=== PATIENT | male | born 1955 | race Caucasian/White ===

== ENCOUNTER 2018-01-14 20:01 | Emergency (ER) | payer MEDICARE, OTHER ==
[2018-01-14 20:54] LABS: Eosinophils 4 % (0-10); Hemoglobin 8.1 g/dL (14.0-18.0); Lymphocytes 29 % (21-51); MDiff Complete? YES; Mean Corpuscular HGB CONC 32.4 g/dL (32.0-36.0); Mean Corpuscular Hemoglobin 30.9 pg (27.0-31.0); Mean Corpuscular Volume 95.4 fl (80.0-94.0); Mean Platelet Volume 9.7 fL (7.4-10.4); Monocytes 12 % (0-10); Neutrophil 54 % (42-75); PLT Morphology Comment Appears Decreased; Platelet Count 38 thou/uL (130-400); RBC Distribution Width 13.9 % (11.5-14.5); Red Blood Cell (RBC) Count 2.61 mill/uL (4.70-6.10); White Blood Cell (WBC) Count 2.9 thou/uL (4.8-10.8)
[2018-01-14 20:58] LABS: ALT (SGPT) 8 U/L (8-55); AST (SGOT) 15 U/L (5-34); Albumin 3.8 g/dL (3.4-4.8); Alkaline Phosphatase 68 U/L (40-150); Anion Gap 13 mmol/L (10-20); BUN (Urea Nitrogen) 44 mg/dL (8.4-25.7); Bilirubin, Total 0.5 mg/dL (0.2-1.2); CK (CPK) 46 U/L (30-200); Calc. Creatinine Clearance 0 mL/min (70-130); Calcium 8.9 mg/dL (7.8-10.44); Carbon Dioxide 18 mmol/L (23-31); Chloride 114 mmol/L (98-107); Estimated GFR-MDRD 39; Globulin 3.1 g/dL (2.4-3.5); Glucose 170 mg/dL (80-115); Potassium 3.9 mmol/L (3.5-5.1); Protein, Total 6.9 g/dL (5.8-8.1); Sodium 141 mmol/L (136-145)
[2018-01-14 21:14] LABS: Troponin I 1.377 ng/mL (< 0.028)
[2018-01-14] MEDS ORDERED: Azithromycin 250 MG TAB ONE (21:23)
--- NOTE | 2018-01-14 21:51 | RAD ---
PORTABLE AP CHEST X-RAY: 01/14/18 HISTORY: Shortness of breath. COMPARISON: Prior study on 06/14/14. FINDINGS: Right subclavian central venous catheter is no longer in place. Postsurgical change related to median sternotomy are noted. There is increased air space opacity seen at the right lung base worrisome for either aspiration pneumonitis or pneumonia. Left lung is clear. No other interval change. IMPRESSION: 1. Parenchymal air space opacity at the right lung base which may be related to either aspiratio n pneumonitis or pneumonia. Followup to resolution is recommended. 2. Cardiomegaly. POS: [facility]
--- NOTE | 2018-01-14 22:40 | PDOC.FPRHP ---
- History of Present Illness Chief Complaint: SOB History of Present Illness: 62 yo male presents with SOB. ED Course: Rocephin, Azithromycin, 500 ml NS bolus, Aspirin - Allergies/Adverse Reactions Allergies Allergy/AdvReac Type Severity Reaction Status Date / Time No Known Allergies Allergy Verified 02/20/14 13:00 - Home Medications Medication Instructions Recorded Confirmed Type Lisinopril [Prinivil] 10 mg PO DAILY 02/20/14 06/02/14 History Aspirin 325 mg PO DAILY #0 tab 02/27/14 06/03/14 Rx Clopidogrel Bisulfate [Plavix] 75 mg PO DAILY #0 tab 02/27/14 06/02/14 Rx Acarbose [Precose] 50 mg PO TID-WM 03/02/14 06/02/14 History Carvedilol [Coreg] 12.5 mg PO BID #0 tab 03/04/14 06/02/14 Rx Furosemide [Lasix] 40 mg PO 0900,1400 #0 tab 03/04/14 06/02/14 Rx HYDROcodone Bit/Acetaminophen 1 - 2 tab PO Q8HR PRN #0 tab 03/04/14 06/03/14 Rx [Vicodin] Nitroglycerin [Nitrostat] 0.4 mg PO Q5MIN PRN #0 tab 03/04/14 06/02/14 Rx Atorvastatin Calcium [Lipitor] 40 mg PO HS 06/02/14 06/02/14 History traMADol HCl [Tramadol HCl] 50 mg PO TID PRN 06/02/14 06/02/14 History HYDROcodone Bit/APAP 5/325 [Bryant] 1 tab PO Q4H PRN #0 tab 06/16/14 Rx Potassium Chloride [K-Dur] 20 meq PO QAM-WM #0 tab 06/16/14 Rx - History PMHx: DM2, HLD, HTN, Anemia, CHF, CKD, Cirrhosis of Liver PSHx: Unsuccessful stent placement in 2013 FHx: Non- Contributory Social: Former Tobacco and Alcohol user. No illicit drug use. - Review of Systems Respiratory: reports: shortness of breath - Vital signs BP: [134/69] HR: [75] RR: [32] Tmax: [97.4] Pox: [97]% on [1L] Wt: [89.4kg ] FMR H&P: Results - Labs Result Diagrams: 01/14/18 20:31 01/14/18 20:31 Lab results: WBC 2.9 thou/uL (4.8-10.8) L 01/14/18 20:31 Hgb 8.1 g/dL (14.0-18.0) L 01/14/18 20:31 Hct 24.9 % (42.0-52.0) L 01/14/18 20: MCV 95.4 fl (80.0-94.0) H 01/14/18 20:31 Plt Count 38 thou/uL (130-400) L 01/14/18 20:31 Sodium 141 mmol/L (136-145) 01/14/18 20: Potassium 3.9 mmol/L (3.5-5.1) 01/14/18 20: Chloride 114 mmol/L (98-107) H 01/14/18 20: Carbon Dioxide 18 mmol/L (23-31) L 01/14/18 20: BUN 44 mg/dL (8.4-25.7) H 01/14/18 20:31 Creatinine 1.78 mg/dL (0.6-1.3) H 01/14/18 20:31 Glucose 170 mg/dL (80-115) H 01/14/18 20:31 Calcium 8.9 mg/dL (7.8-10.44) 01/14/18 20: Total Bilirubin 0.5 mg/dL (0.2-1.2) 01/14/18 20: AST 15 U/L (5-34) 01/14/18 20: ALT 8 U/L (8-55) 01/14/18 20:31 Alkaline Phosphatase 68 U/L (40-150) 01/14/18 20:31 Creatine Kinase 46 U/L (30-200) 01/14/18 20:31 CK-MB (CK-2) 3.0 ng/mL (0-6.6) 01/14/18 20: Serum Total Protein 6.9 g/dL (5.8-8.1) 01/14/18 20: Albumin 3.8 g/dL (3.4-4.8) 01/14/18 20: FMR H&P: Upper Level - Plan Date/Time: 01/14/18 2238 I, [], have evaluated this patient and agree with findings/plan as outlined by automotive internet sales manager resident. Pertinent changes/additions are listed here.
== END 2018-01-14 23:12 | disposition left against medical advice (07) ==
LOC: ERS 20:01
DX: I21.4 Non-ST elevation (NSTEMI) myocardial infarction (principal); N17.9 Acute kidney failure, unspecified; D64.9 Anemia, unspecified; R09.02 Hypoxemia; I11.0 Hypertensive heart disease with heart failure; I50.9 Heart failure, unspecified; I25.2 Old myocardial infarction; K74.60 Unspecified cirrhosis of liver; E11.9 Type 2 diabetes mellitus without complications; E78.5 Hyperlipidemia, unspecified; F41.9 Anxiety disorder, unspecified; F31.9 Bipolar disorder, unspecified; F43.10 Post-traumatic stress disorder, unspecified; Z87.891 Personal history of nicotine dependence
CPT/HCPCS: 71045; 80053; 82553; 84484; 85025; 93005; 94760; J0696

== ENCOUNTER 2018-02-15 20:08 | Emergency (ER) | payer MEDICARE, OTHER ==
[2018-02-15 20:58] LABS: Hemoglobin 8.9 g/dL (14.0-18.0); Mean Corpuscular HGB CONC 32.6 g/dL (32.0-36.0); Mean Corpuscular Hemoglobin 30.6 pg (27.0-31.0); Mean Corpuscular Volume 94.2 fl (80.0-94.0); Red Blood Cell (RBC) Count 2.91 mill/uL (4.70-6.10); White Blood Cell (WBC) Count 2.7 thou/uL (4.8-10.8)
[2018-02-15 21:17] LABS: Band 1 % (5-11); Eosinophils 2 % (0-10); Lymphocytes 31 % (21-51); MDiff Complete? YES; Mean Platelet Volume 9.4 fL (7.4-10.4); Monocytes 11 % (0-10); Neutrophil 55 % (42-75); PLT Morphology Comment Appears Decreased; Platelet Count 53 thou/uL (130-400); RBC Distribution Width 12.9 % (11.5-14.5)
[2018-02-15 21:19] LABS: ALT (SGPT) 8 U/L (8-55); AST (SGOT) 20 U/L (5-34); Albumin 3.8 g/dL (3.4-4.8); Alkaline Phosphatase 72 U/L (40-150); Anion Gap 15 mmol/L (10-20); BUN (Urea Nitrogen) 32 mg/dL (8.4-25.7); Bilirubin, Total 0.6 mg/dL (0.2-1.2); CK (CPK) 31 U/L (30-200); Calc. Creatinine Clearance 0 mL/min (70-130); Calcium 8.7 mg/dL (7.8-10.44); Carbon Dioxide 20 mmol/L (23-31); Chloride 108 mmol/L (98-107); Estimated GFR-MDRD 45; Globulin 3.6 g/dL (2.4-3.5); Glucose 135 mg/dL (80-115); Potassium 3.5 mmol/L (3.5-5.1); Protein, Total 7.4 g/dL (5.8-8.1); Sodium 139 mmol/L (136-145)
[2018-02-15 21:22] LABS: CKMB 1.3 ng/mL (0-6.6); Troponin I 0.054 ng/mL (< 0.028)
--- NOTE | 2018-02-15 22:19 | ULT ---
RIGHT UPPER EXTREMITY VENOUS DOPPLER: 02/15/2018 PROVIDED CLINICAL HISTORY: Right arm swelling. FINDINGS: Fraser-scale and color Doppler sonography with spectral analysis was performed of the right internal ju gular, subclavian, axillary, brachial, basilic, cephalic, radial, and ulnar veins, demonstrating a no rmal sonographic appearance to each. IMPRESSION: No sonographic evidence for right upper extremity venous thrombosis. POS: [facility]
[2018-02-15] MEDS ORDERED: Sulfameth/Trimethoprim DS 800-160mg TAB ONE (23:03)
== END 2018-02-15 23:09 | disposition home or self-care (01) ==
LOC: ERS 20:08
DX: L03.113 Cellulitis of right upper limb (principal); E11.9 Type 2 diabetes mellitus without complications; E78.5 Hyperlipidemia, unspecified; I11.0 Hypertensive heart disease with heart failure; I50.9 Heart failure, unspecified; I25.2 Old myocardial infarction; F41.9 Anxiety disorder, unspecified; F31.9 Bipolar disorder, unspecified; Z87.891 Personal history of nicotine dependence; Z79.899 Other long term (current) drug therapy
CPT/HCPCS: 36415; 80053; 82550; 82553; 84484; 85025; 93005

== ENCOUNTER 2018-04-01 07:55 | Emergency (ER) | payer MEDICARE, OTHER ==
[2018-04-01] MEDS ORDERED: Furosemide 40 MG/4 ML VIAL ONE (08:29)
[2018-04-01 08:46] LABS: Hemoglobin 7.9 g/dL (14.0-18.0); Mean Corpuscular HGB CONC 32.9 g/dL (32.0-36.0); Mean Corpuscular Hemoglobin 31.6 pg (27.0-31.0); Mean Corpuscular Volume 96.1 fL (78.0-98.0); RBC Distribution Width 15.1 % (11.5-14.5); Red Blood Cell (RBC) Count 2.51 mill/uL (4.70-6.10); White Blood Cell (WBC) Count 2.6 thou/uL (4.8-10.8)
[2018-04-01 09:03] LABS: ALT (SGPT) 12 U/L (8-55); AST (SGOT) 19 U/L (5-34); Albumin 3.6 g/dL (3.4-4.8); Alkaline Phosphatase 76 U/L (40-150); Anion Gap 13 mmol/L (10-20); BUN (Urea Nitrogen) 39 mg/dL (8.4-25.7); Bilirubin, Total 0.5 mg/dL (0.2-1.2); Calc. Creatinine Clearance 0 mL/min (70-130); Calcium 8.3 mg/dL (7.8-10.44); Carbon Dioxide 20 mmol/L (23-31); Chloride 111 mmol/L (98-107); Estimated GFR-MDRD 37; Globulin 2.9 g/dL (2.4-3.5); Glucose 140 mg/dL (80-115); Potassium 4.5 mmol/L (3.5-5.1); Protein, Total 6.5 g/dL (5.8-8.1); Sodium 139 mmol/L (136-145)
[2018-04-01 09:07] LABS: Band 5 % (5-11); Eosinophils 11 % (0-10); Lymphocytes 38 % (21-51); MDiff Complete? YES; Mean Platelet Volume 9.7 fL (7.4-10.4); Neutrophil 46 % (42-75); PLT Morphology Comment Appears Decreased; Platelet Count 35 thou/uL (130-400)
[2018-04-01 09:08] LABS: CKMB 3.4 ng/mL (0-6.6); Troponin I 0.092 ng/mL (< 0.028)
--- NOTE | 2018-04-01 10:07 | RAD ---
FRONTAL VIEW CHEST: COMPARISON: 01/14/18. INDICATION: Short of breath. FINDINGS: Progressive pleural and parenchymal density at the mid to inferior right chest is present. The left lung is relatively clear. Cardiac silhouette and pulmonary vasculature are prominent with evidence o f prior sternotomy. IMPRESSION: Progressive pleural and parenchymal density of the mid inferior right hemithorax. This may relate to pneumonia with associated pleural effusion. Recommend continued imaging followup with dedicated 2-v iew chest for further assessment. POS: [facility]
== END 2018-04-01 09:52 | disposition home or self-care (01) ==
LOC: ERS 07:55
DX: I11.0 Hypertensive heart disease with heart failure (principal); I50.9 Heart failure, unspecified; I25.2 Old myocardial infarction; E11.9 Type 2 diabetes mellitus without complications; E78.5 Hyperlipidemia, unspecified; D64.9 Anemia, unspecified; F41.9 Anxiety disorder, unspecified; F31.9 Bipolar disorder, unspecified; F43.10 Post-traumatic stress disorder, unspecified; Z87.891 Personal history of nicotine dependence; Z79.891 Long term (current) use of opiate analgesic; Z79.899 Other long term (current) drug therapy
CPT/HCPCS: 36415; 71045; 80053; 82553; 83880; 84484; 85025; 93005; 96374; J1940

== ENCOUNTER 2018-04-17 22:32 | Inpatient (IN) | payer MEDICARE, OTHER ==
[2018-04-18 00:46] LABS: CKMB 1.5 ng/mL (0-6.6); Troponin I 0.032 ng/mL (< 0.028)
[2018-04-18 00:49] LABS: AST (SGOT) 12 U/L (5-34); Albumin 3.7 g/dL (3.4-4.8); Alkaline Phosphatase 64 U/L (40-150); Anion Gap 14 mmol/L (10-20); BUN (Urea Nitrogen) 53 mg/dL (8.4-25.7); Bilirubin, Total 0.8 mg/dL (0.2-1.2); Calc. Creatinine Clearance 0 mL/min (70-130); Calcium 8.6 mg/dL (7.8-10.44); Carbon Dioxide 21 mmol/L (23-31); Chloride 111 mmol/L (98-107); Estimated GFR-MDRD 37; Globulin 3.1 g/dL (2.4-3.5); Glucose 126 mg/dL (80-115); Protein, Total 6.8 g/dL (5.8-8.1); Sodium 142 mmol/L (136-145)
[2018-04-18 00:55] LABS: Anisocytosis SLIGHT = 6-15 cells (100X) (0-5/hpf); Band 8 % (5-11); Eosinophils 4 % (0-10); Lymphocytes 17 % (21-51); MDiff Complete? YES; Mean Corpuscular HGB CONC 32.8 g/dL (32.0-36.0); Mean Corpuscular Hemoglobin 31.6 pg (27.0-31.0); Mean Corpuscular Volume 96.3 fL (78.0-98.0); Mean Platelet Volume 10.5 fL (7.4-10.4); Monocytes 21 % (0-10); Neutrophil 49 % (42-75); Ovalocytes SLIGHT = 2-5 cells (100X) (0-1/hpf); PLT Morphology Comment Appears Decreased; Platelet Count 33 thou/uL (130-400); RBC Distribution Width 14.9 % (11.5-14.5); Red Blood Cell (RBC) Count 2.53 mill/uL (4.70-6.10); White Blood Cell (WBC) Count 2.3 thou/uL (4.8-10.8)
[2018-04-18 01:16] LABS: ALT (SGPT) Less than 7 U/L (8-55)
--- NOTE | 2018-04-18 02:11 | RAD ---
CHEST ONE VIEW: HISTORY: Fluid overload. COMPARISON: 04/01/2018 FINDINGS: Persistent opacification of the right hemithorax due to pleural and parenchymal changes. When compar ed to the previous study, the degree of opacification has decreased. Stable aeration of the left josiah g. Stable configuration of the enlarged cardiac silhouette. No pneumothorax. IMPRESSION: Persistent opacification of the right hemithorax due to pleural and parenchymal changes. The degree of opacification has decreased since the prior examination. POS: [facility]
[2018-04-18] MEDS ORDERED: Furosemide 40 MG/4 ML VIAL ONE ×2 (02:14→02:15)
[2018-04-18 03:20] LABS: Bilirubin Negative (Negative); Blood, Urine Negative (Negative); Clarity CLEAR (Clear); Glucose, Urine (Dipstick) Negative (Negative); Leukocyte Negative (Negative); Nitrite Negative (Negative); Protein, Urine (Dipstick) Negative (Neg-Trace); Specific Gravity, Urine 1.007 (1.002-1.036); Urobilinogen 0.2 mg/dL (0.2-1.0)
[2018-04-18 04:53] VITALS: BMI 25.2
[2018-04-18] MEDS ORDERED: Furosemide 40 MG/4 ML VIAL SLOW IVP SCH (06:00)
[2018-04-18] MEDS ORDERED: Zolpidem Tartrate 5 MG TAB PO PRN (08:26)
[2018-04-18] MEDS ORDERED: Ondansetron ODT 4 MG TAB PO PRN (08:26)
[2018-04-18] MEDS ORDERED: Acetaminophen 325 MG TAB PO PRN (08:26)
[2018-04-18] MEDS ORDERED: traMADol HCl 50 MG TAB PO PRN (08:27)
[2018-04-18] MEDS ORDERED: Lisinopril 10 MG TAB PO SCH (09:00)
[2018-04-18] MEDS ORDERED: Non-Formulary Item 1 EACH (Levemir Flexpen [Levemir Flexpen] 30 UNIT) SC SCH (09:00)
[2018-04-18] MEDS ORDERED: Insulin Glargine 30 UNITS in Pre-Filled Syringe 1 EACH SC SCH (09:00)
[2018-04-18 09:31] LABS: INR-International Normal Ratio 1.4; Prothrombin Time 17.6 SEC (12.0-14.7)
--- NOTE | 2018-04-18 09:44 | HP ---
PRIMARY CARE PROVIDER: Dr. Francois at [facility]. HISTORY OF PRESENT ILLNESS: Patient referred to the ER by Dr. Francois for shortness of breath. He has long history of ascites, heart disease. He has abdominal swelling. He gets paracenteses every 3 -4 months, he has had no chest pain, his shortness of breath is at rest, worse with exertion, worse w ith lying flat. PAST MEDICAL HISTORY: Pertinent for cirrhosis, cardiomyopathy, coronary artery disease post-coronary artery bypass graft in 2013, hypertension, diabetes mellitus type 2, insulin-dependent. CURRENT MEDICATIONS: Levemir 30 units in the morning and 25 in the evening, Lasix 40 mg twice a day, Plavix 75 mg a day, Lipitor 40 mg a day, aspirin 81 mg a day, tramadol 50 mg t.i.d. p.r.n., K-Dur 20 mEq a.m., lisinopril 10 mg a day, Coreg 12.5 mg twice a day. ALLERGIES: No known drug allergies. PAST SURGICAL HISTORY: He has had bilateral cataract surgery in addition to his coronary artery bypa ss graft. FAMILY HISTORY: Negative cirrhosis. His mother of heart disease at 94. SOCIAL HISTORY: , FULL CODE status. is surrogate decision maker. No alcohol in 2 years . No tobacco. REVIEW OF SYSTEMS: GENERAL: The patient has dizziness arising, no fainting. EYES: No double visio n, blurred vision, flashing lights. EAR, NOSE, AND THROAT: No ear pain or drainage. No nasal bleed ing. No trouble swallowing. CARDIAC: No orthopnea, paroxysmal nocturnal dyspnea or chest pain exce pt for some recent trouble with sleeping, lying flat. RESPIRATIONS: Dyspnea on exertion, chronic co ugh, no asthma. GASTROINTESTINAL: No nausea or vomiting. He does have loose stools with lactulose. No abdominal pain. Does have abdominal swelling. MUSCULOSKELETAL: He has swelling in his lower e xtremities. No pain in his muscles or joints. NEUROLOGICAL: He thinks he had a stroke in 2017. No residual. PSYCHIATRIC: No anxiety, depression. SKIN: No bruises, bleeding or rash. HEME/LYMPH: No tender or swollen lymph nodes in axilla, inguinal, or cervical area. PHYSICAL EXAMINATION: GENERAL APPEARANCE: Patient is alert, oriented, cooperative, pleasant. VITAL SIGNS: O2 sat 94% on 2 liters by nasal cannula, blood pressure 113/57, pulse 77, respirations 20. HEAD, EYES, EARS, NOSE AND THROAT: Reveal pupils equal, round, and reactive to light. Extraocular m ovements are intact. Sclerae are white. Tympanic membranes clear. Nose is clear. Oral mucous memb ranes are wet with no lesions. NECK: No jugular venous distention, adenopathy or thyromegaly. CHEST: Dull to percussion in the right lower chest. Breath sounds are good otherwise. HEART: Regular rate and rhythm. First and second heart sounds are clear. No appreciated murmurs or gallops. ABDOMEN: Distended, positive fluid wave, nontender. It is difficult to be sure because of the ascit es, but the spleen appears palpable. EXTREMITIES: Revealed 2+ edema with no cyanosis or clubbing. PULSES: Carotid, radial, femoral, and dorsalis pedis pulses intact. SKIN: Warm and dry without bruises or rash. PSYCHIATRIC: No tender or swollen lymph nodes in axilla, inguinal, or cervical area. NEUROLOGIC: Cranial nerves II-XII are intact. Moves all extremities. Deep tendon reflexes symmetri c. LABORATORY DATA AND IMAGING DATA: CBC: White count 2.3, hemoglobin 8.0, platelet count 33,000. Com p metabolic profile and liver function test remarkably normal. Blood sugar 126, creatinine 1.87, BUN 5.3, chloride 111 and CO2 of 21. BNP is elevated at 1860. Troponin 0.03. Urine is clear. Chest x -ray, post-surgical changes, moderate right pleural effusion, reviewed by me. EKG, none presented. ADMITTING DIAGNOSES: 1. Acute respiratory failure with hypoxemia. 2. Right pleural effusion. 3. Cirrhosis. 4. Ascites. 5. Coronary artery disease. 6. Cardiomyopathy. 7. Diabetes mellitus type 2, insulin-dependent with chronic kidney disease stage 3. 8. 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 PLAN: We will place him in the hospital. Echocardiogram has been ordered. Prothrombin time has bee n ordered. Patient has been started on rapid diuresis in the emergency room. We will slow that down . We will consult GI. We will make further recommendations when more data is obtained. He is on O2 2 liters by nasal cannula.
[2018-04-18] MEDS: Carvedilol 6.25 MG TAB PO SCH ×2 (09:54→20:25)
[2018-04-18] MEDS: Furosemide 40 MG TAB PO SCH ×2 (09:54→16:40)
[2018-04-18] MEDS ORDERED: Atorvastatin Calcium 40 MG TAB PO SCH (21:00)
[2018-04-18] MEDS ORDERED: Non-Formulary Item 1 EACH (Levemir Flexpen [Levemir Flexpen] 25 UNIT) SC SCH (21:00)
[2018-04-18] MEDS ORDERED: Insulin Glargine 25 UNITS in Pre-Filled Syringe 1 EACH SC SCH (21:00)
[2018-04-19 05:31] LABS: INR-International Normal Ratio 1.4; Prothrombin Time 17.5 SEC (12.0-14.7)
[2018-04-19 05:38] LABS: Anion Gap 13 mmol/L (10-20); BUN (Urea Nitrogen) 51 mg/dL (8.4-25.7); Calc. Creatinine Clearance 53 mL/min (70-130); Calcium 8.4 mg/dL (7.8-10.44); Carbon Dioxide 22 mmol/L (23-31); Chloride 110 mmol/L (98-107); Estimated GFR-MDRD 42; Glucose 74 mg/dL (80-115); Potassium 3.8 mmol/L (3.5-5.1); Sodium 141 mmol/L (136-145)
[2018-04-19 05:53] LABS: Hemoglobin 7.1 g/dL (14.0-18.0); Mean Corpuscular HGB CONC 32.1 g/dL (32.0-36.0); Mean Corpuscular Hemoglobin 30.9 pg (27.0-31.0); Mean Corpuscular Volume 96.4 fL (78.0-98.0); Mean Platelet Volume 10.2 fL (7.4-10.4); Platelet Count 29 thou/uL (130-400); Red Blood Cell (RBC) Count 2.29 mill/uL (4.70-6.10); White Blood Cell (WBC) Count 1.9 thou/uL (4.8-10.8)
--- NOTE | 2018-04-19 05:53 | CON ---
DATE OF CONSULTATION: 04/18/2018 CHIEF COMPLAINT: Shortness of breath and abdominal distention. HISTORY OF PRESENT ILLNESS: Mr. Samano is a 62-year-old man with cirrhosis and cardiomyopathy who has been followed at the [facility] who presented to the emergency room yesterday with progressive abd ominal distention and shortness of breath. He had a paracentesis around 3 weeks ago and he had 5 bot tles of fluid removed. He has no abdominal pain now. No diarrhea, constipation, or blood in the sto ol. PAST MEDICAL HISTORY: Cirrhosis of liver secondary to past alcohol use and hepatitis C. He quit dri nking alcohol 2 years ago. He was treated for a period of the hepatitis C with oral medications last year. There is a history of coronary artery disease status post coronary artery bypass graft and he has a history of cardiomyopathy. He has hypertension and diabetes. PAST SURGICAL HISTORY: Coronary artery bypass graft, cataract surgery. FAMILY HISTORY: Negative for GI malignancies. SOCIAL HISTORY: Quit alcohol 2 years ago. He quit smoking 2 years ago. No drugs. He is a [place] . ALLERGIES: No known drug allergies. MEDICATIONS: Prior to admission insulin, Lasix 40 mg twice daily, Lipitor, aspirin, tramadol, lisino pril, Coreg. REVIEW OF SYSTEMS: Negative x10 systems reviewed except as stated in the history of present illness. PHYSICAL EXAMINATION: VITAL SIGNS: Temperature 97.4, blood pressure 109/58, pulse 69, oxygen saturation 98% on room air. GENERAL: He is somewhat tachypneic. HEENT: His eyes have no scleral icterus. Oropharynx is clear without lesions. NECK: No cervical or supraclavicular lymphadenopathy. LUNGS: Clear to auscultation bilaterally. HEART: Regular rate and rhythm. ABDOMEN: Distended, but soft. His bowel sounds are present. EXTREMITIES: 2+ pitting lower extremity edema. LABORATORY DATA: White blood cell count 2.3, hemoglobin 8.0, platelets 33,000. INR 1.4. Creatinine 1.87 with a BUN of 53. Ammonia 44, bilirubin 0.8, AST 12, ALT 7, alkaline phosphatase 64, albumin 3 .7. IMPRESSION: 1. Decompensated Cirrhosis secondary to past alcohol and past hepatitis C infection. He quit drinki ng 2 years ago. He was cured of the hepatitis C with oral medicines per his report last year. He is decompensated with ascites; however, his liver synthetic function appears good with normal bilirubin and normal albumin. His INR is elevated at 1.4. 2. Ascites. He has required repeated paracentesis. He is on furosemide; however, I do not see spir onolactone on his medication list. He should be on low salt diet. He becomes more short of breath a s the ascites worsens. Chest x-ray shows opacification of the right hemithorax, which may be due to hepatic hydrothorax some degree. 3. Cardiomyopathy. This may be contributing significantly to the ascites and lower extremity edema. He has been followed at the [facility] for his liver disease. I do not know what the status of varices scr eening or hepatoma screening. We will request records. RECOMMENDATIONS: 1. Low salt diet. 2. Continue current diuretics for now. He does have elevated creatinine and have to be careful with the diuretics. Again, we will request records regarding this. 3. If he has not had ultrasound of the liver or alpha fetoprotein in the last 6 months, this can be checked. We will request previous labs and endoscopy reports. 4. We will recommend paracentesis with radiology guidance tomorrow. He does have thrombocytopenia r elated to hypersplenism. Given that his platelet count is 33, 000 it might be reasonable to disconti nue the Plavix at this point and we will give platelets prior to the paracentesis tomorrow as radiolo gy will require this. The ascitic fluid should be sent for albumin and total protein as well as cult ure and sensitivity. We will compare the serum albumin tomorrow to calculate a serum ascites albumin gradient.
[2018-04-19 06:29] LABS: Band 5 % (5-11); Eosinophils 4 % (0-10); Lymphocytes 16 % (21-51); MDiff Complete? YES; Monocytes 20 % (0-10); Neutrophil 55 % (42-75); PLT Morphology Comment Appears Decreased
[2018-04-19] MEDS ORDERED: Potassium Chloride 20 MEQ TAB PO SCH (08:00)
[2018-04-19 08:20] VITALS: BP 111/62; TEMP 97.5
[2018-04-19 13:21] LABS: ALT (SGPT) Less than 7 U/L (8-55); AST (SGOT) 11 U/L (5-34); Albumin 3.5 g/dL (3.4-4.8); Alkaline Phosphatase 55 U/L (40-150); Bilirubin, Direct 0.3 mg/dL (0.1-0.3); Bilirubin, Total 0.8 mg/dL (0.2-1.2); Protein, Total 6.3 g/dL (5.8-8.1)
--- NOTE | 2018-04-19 15:06 | DIS ---
DATE OF ADMISSION: 04/18/2018 LEFT AGAINST MEDICAL ADVICE: 04/19/2018 PRIMARY CARE PROVIDER: Rakesh Francois DISCHARGE MEDICATIONS: None. ALLERGIES: No known drug allergies. HOSPITAL COURSE: The patient referred to the emergency room by Dr. rFancois of the [facility] for ascites, s hortness of breath. The patient had cirrhosis, cardiomyopathy, coronary artery disease, hypertension , diabetes mellitus type 2, insulin-dependent. On physical exam, he had significant ascites. No other significant findings of note. Chest x-ray di d reveal a right pleural effusion. Laboratory revealed a pancytopenia with a hemoglobin of 8.0, plat elet count 33,000 and a white count of 2.3. His INR was 1.4. His comp metabolic profile revealed a creatinine of 1.87, BUN 53. Blood sugars in the 100 range. Ammonia 44. He was seen in consultation by Dr. Carroll Luna who recommended a thoracentesis, to stop his Plavix and give him platelets befo rehand. This morning I was called, told that he had disappeared, that he did not want to fool around with us and was just going to go back to the [facility] to get it done. He was discharged AMA.
== END 2018-04-19 09:07 | disposition left against medical advice (07) | DRG 189 ==
LOC: ERS 22:32 → T4-B 04-18 04:28 → OBSVTOIN 04-18 08:26
PROVIDERS: ADMIT Hospitalist; ATTEND Hospitalist
DX: J96.01 Acute respiratory failure with hypoxia (principal); R18.8 Other ascites; I42.9 Cardiomyopathy, unspecified; J90 Pleural effusion, not elsewhere classified; D61.818 Other pancytopenia; I25.10 Atherosclerotic heart disease of native coronary artery without angina pectoris; E11.22 Type 2 diabetes mellitus with diabetic chronic kidney disease; I12.9 Hypertensive chronic kidney disease with stage 1 through stage 4 chronic kidney disease, or unspecified chronic kidney disease; N18.3 Chronic kidney disease, stage 3 (moderate); K74.60 Unspecified cirrhosis of liver; Z87.891 Personal history of nicotine dependence; Z95.1 Presence of aortocoronary bypass graft; Z79.4 Long term (current) use of insulin; Z79.02 Long term (current) use of antithrombotics/antiplatelets; Z79.82 Long term (current) use of aspirin; Z82.49 Family history of ischemic heart disease and other diseases of the circulatory system
CPT/HCPCS: 36415; 36416; 71045; 80048; 80053; 80076; 81003; 82140; 82553; 83880; 84484; 85025; 85610; 86850; 86900; 86901; 93306; 96374; J1940; J7620

== ENCOUNTER 2018-07-03 21:44 | Inpatient (IN) | payer MEDICARE, OTHER ==
[~2018-07-03 21:44] MED LIST: ISOVUE-370 76%-LOCM 1 ML ONE
[2018-07-03] MEDS ORDERED: Furosemide 40 MG/4 ML VIAL ONE (22:15)
[2018-07-03 22:29] LABS: Hemoglobin 7.6 g/dL (14.0-18.0); Mean Corpuscular HGB CONC 31.6 g/dL (32.0-36.0); Mean Corpuscular Hemoglobin 30.1 pg (27.0-31.0); Mean Corpuscular Volume 95.3 fL (78.0-98.0); RBC Distribution Width 15.3 % (11.5-14.5); Red Blood Cell (RBC) Count 2.52 mill/uL (4.70-6.10); White Blood Cell (WBC) Count 2.4 thou/uL (4.8-10.8)
[2018-07-03 22:30] LABS: INR-International Normal Ratio 1.4; Prothrombin Time 17.4 SEC (12.0-14.7)
[2018-07-03 22:32] LABS: Hypochromia SLIGHT = 6-15 cells (100X) (0-5/hpf); Lymphocytes 18 % (21-51); MDiff Complete? YES; Mean Platelet Volume 11.9 fL (7.4-10.4); Monocytes 8 % (0-10); Neutrophil 74 % (42-75); PLT Morphology Comment Appears Decreased; Platelet Count 33 thou/uL (130-400); Polychromasia SLIGHT = 2-3 cells (100X) (0-2/hpf)
[2018-07-03 22:34] LABS: ALT (SGPT) Less than 7 U/L (8-55); AST (SGOT) 12 U/L (5-34); Albumin 3.3 g/dL (3.4-4.8); Alkaline Phosphatase 70 U/L (40-150); Anion Gap 12 mmol/L (10-20); BUN (Urea Nitrogen) 35 mg/dL (8.4-25.7); Bilirubin, Total 0.8 mg/dL (0.2-1.2); Calc. Creatinine Clearance 0 mL/min (70-130); Calcium 8.1 mg/dL (7.8-10.44); Carbon Dioxide 20 mmol/L (23-31); Chloride 110 mmol/L (98-107); Estimated GFR-MDRD 43; Globulin 2.6 g/dL (2.4-3.5); Glucose 116 mg/dL (80-115); Potassium 3.7 mmol/L (3.5-5.1); Protein, Total 5.9 g/dL (5.8-8.1); Sodium 138 mmol/L (136-145)
[2018-07-03 22:39] LABS: Troponin I 0.027 ng/mL (< 0.028)
--- NOTE | 2018-07-03 22:46 | RAD ---
PORTABLE CHEST ONE VIEW: 07/03/2018 9:36 p.m. COMPARISON: 04/17/2018 FINDINGS: Changes of median sternotomy are again seen. The heart is enlarged. Pleural parenchymal changes wit h opacification of the right lower hemithorax are again seen. No pneumothoraces are identified. POS: [facility]
--- NOTE | 2018-07-03 23:59 | CT ---
CT PULMONARY ANGIOGRAM WITH IV CONTRAST AND 3D POST PROCESSING: FINDINGS: No filling defects are seen in the pulmonary arterial vasculature to suggest pulmonary embolism. The thoracic aorta is well opacified without aneurysm or dissection. No pericardial effusion is seen. There is a tiny left pleural effusion and moderate right pleural effusion with adjacent consolidation /atelectatic changes. No pneumothoraces are seen. Upper abdominal tomograms demonstrate ascites, ci rrhosis of the liver, and splenomegaly. There are degenerative changes of the spine. IMPRESSION: No CT evidence of pulmonary embolism. POS: [facility]
[2018-07-04] MEDS ORDERED: Azithromycin 500 MG VIAL ONE (00:06)
--- NOTE | 2018-07-04 00:16 | PDOC.FPRHP ---
- History of Present Illness Chief Complaint: SOB History of Present Illness: This is a 62 yo male with PMH of CAD s/p CABG, cirrhosis, HTN, IDDM, HFrEF who presents to the ER with a cc of SOB. He states this acute episode started 2 days ago and worsened [employer]. He denies any cough or chest pain with this episode. He reports he took 80mg of his lasix this morning and that did not help his breathing. He reports normally he has fluid drained from his abdomen every 3 months at the [facility] in [place] due to his cirrhosis and usually has increasing SOB prior to having the fluid removed. ED Course: 20 IV lasix, vanc, zosyn, azithromycin - Allergies/Adverse Reactions Allergies Allergy/AdvReac Type Severity Reaction Status Date / Time No Known Allergies Allergy Verified 07/04/18 02:55 - Home Medications Medication Instructions Recorded Confirmed Type Lisinopril [Prinivil] 10 mg PO DAILY 02/20/14 07/04/18 History Clopidogrel Bisulfate [Plavix] 75 mg PO DAILY #0 tab 02/27/14 07/04/18 Rx Carvedilol [Coreg] 12.5 mg PO BID #0 tab 03/04/14 07/04/18 Rx Furosemide [Lasix] 40 mg PO 0900,1400 #0 tab 03/04/14 07/04/18 Rx Nitroglycerin [Nitrostat] 0.4 mg PO Q5MIN PRN #0 tab 03/04/14 07/04/18 Rx Atorvastatin Calcium [Lipitor] 40 mg PO HS 06/02/14 07/04/18 History traMADol HCl [Tramadol HCl] 50 mg PO TID PRN 06/02/14 07/04/18 History Potassium Chloride [K-Dur] 20 meq PO QAM-WM #0 tab 06/16/14 07/04/18 Rx Aspirin 81 mg PO DAILY 04/18/18 07/04/18 History Levemir Flexpen 25 unit SC QAM 04/18/18 07/04/18 History Levemir Flexpen 30 unit SC HS 04/18/18 07/04/18 History - History PMHx: CAD, HFrEF, Cirrhosis, CVA, IDDM, CKD 3 PSHx: CABG 2013 FHx: noncontributory Social: Former smoker - Review of Systems General: denies: fever/chills, weight/appetite/sleep changes Eyes: denies: eye pain, vision changes ENT: denies: nasal congestion, rhinorrhea Respiratory: reports: shortness of breath, exercise intolerance. denies: cough , congestion Cardiovascular: reports: edema. denies: chest pain, palpitation Gastrointestinal: denies: nausea, vomiting, diarrhea, constipation, abdominal pain Skin: denies: rashes, lesions Musculoskeletal: denies: pain, tenderness, stiffness, swelling Neurological: denies: numbness, syncope, seizure Psychological: denies: anxiety, depression - Vital signs BP: 116/59 HR: 73 RR: 20 Tmax: 97.7 Pox: 95% on 2L Wt: 90.3 - Physical Exam Constitutional: NAD HEENT: normocephalic and atraumatic, PERRLA, EOMI, MMM Neck: supple, FROM, other (JVD present at 60 degrees) Chest: no-tender to palpation, no lesions Heart: RRR, normal S1/S2, no murmurs/rubs/gallops, other (2+ pitting edema to mid thigh) Lungs: CTAB, no respiratory distress, no wheezing, other (decreased air movement on the right) Abdomen: soft, other (fluid wave, distended) Musculoskeletal: normal structure, normal tone Neurological: CN II-XII intact Skin: no jaundice Heme/Lymphatic: no unusual bruising or bleeding, no purpura Psychiatric: normal mood and affect FMR H&P: Results - Labs Result Diagrams: 07/04/18 04:36 07/04/18 04:36 Lab results: WBC 2.4 thou/uL (4.8-10.8) L 07/03/18 22:00 Hgb 7.6 g/dL (14.0-18.0) L 07/03/18 22:00 Hct 24.1 % (42.0-52.0) L 07/03/18 22:00 MCV 95.3 fL (78.0-98.0) 07/03/18 22:00 Plt Count 33 thou/uL (130-400) L 07/03/18 22:00 Sodium 138 mmol/L (136-145) 07/03/18 22:00 Potassium 3.7 mmol/L (3.5-5.1) 07/03/18 22:00 Chloride 110 mmol/L (98-107) H 07/03/18 22:00 Carbon Dioxide 20 mmol/L (23-31) L 07/03/18 22:00 BUN 35 mg/dL (8.4-25.7) H 07/03/18 22:00 Creatinine 1.63 mg/dL (0.6-1.3) H 07/03/18 22:00 Glucose 116 mg/dL (80-115) H 07/03/18 22:00 Lactic Acid 1.1 mmol/L (0.5-2.2) 07/03/18 22:00 Calcium 8.1 mg/dL (7.8-10.44) 07/03/18 22:00 Total Bilirubin 0.8 mg/dL (0.2-1.2) 07/03/18 22:00 AST 12 U/L (5-34) 07/03/18 22:00 ALT Less than 7 U/L (8-55) L 07/03/18 22:00 Alkaline Phosphatase 70 U/L (40-150) 07/03/18 22:00 CK-MB (CK-2) 1.0 ng/mL (0-6.6) 07/03/18 22:00 B-Natriuretic Peptide 1840.3 pg/mL (0-100) H 07/03/18 22:00 Serum Total Protein 5.9 g/dL (5.8-8.1) 07/03/18 22:00 Albumin 3.3 g/dL (3.4-4.8) L 07/03/18 22:00 Procalcitonin: 0.08 - Radiology Interpretation Chest x-ray Status: report reviewed by me (changes of median sternotomy, heart is enlarged, pleural parenchymal changes with opacification of the right lower hemithorax. No pneumothoraces seen) FMR H&P: A/P - Problem List (1) Acute respiratory failure with hypoxia Status: Acute Code(s): J96.01 - ACUTE RESPIRATORY FAILURE WITH HYPOXIA (2) SIRS without infection or organ dysfunction Status: Acute Code(s): R65.10 - SIRS OF NON-INFECTIOUS ORIGIN W/O ACUTE ORGAN DYSFUNCTION (3) Liver cirrhosis, alcoholic Status: Acute Code(s): K70.30 - ALCOHOLIC CIRRHOSIS OF LIVER WITHOUT ASCITES (4) CKD (chronic kidney disease) stage 3, GFR 30-59 ml/min Status: Acute Code(s): N18.3 - CHRONIC KIDNEY DISEASE, STAGE 3 (MODERATE) (5) CAD (coronary artery disease) Status: Acute Code(s): I25.10 - ATHSCL HEART DISEASE OF [place] CORONARY ARTERY W/O ANG PCTRS (6) Diabetes mellitus Status: Acute Code(s): E11.9 - TYPE 2 DIABETES MELLITUS WITHOUT COMPLICATIONS (7) HTN (hypertension) Status: Acute Code(s): I10 - ESSENTIAL (PRIMARY) HYPERTENSION (8) S/P CABG x 4 Status: Acute - Plan This is a 62 yo male with PMH of CAD s/p CABG, cirrhosis, HTN, IDDM, HFrEF Acute hypoxic respiratory distress 2/2 CHF vs PNA -Admit to tele. Procal was negative pointing more to CHF exacerbation. We will not continue the abx from the ER. We are currently giving pt. IV lasix to decrease fluid overload. CXR and CTA show pleural effusion and ascites. We will consult IR for drainage of these tomorrow 2/2 to his Plt of 33 and plan to send fluid to lab for analysis. SIRS criteria without signs of infection -Pt. was tachypnenic, WBC of 2.4, and temp of 102.1. Procalcitonin is low r/o PNA. Exam is not convincing of Spontaneous bacterial peritonitis however we would have a low threshold for restarting Abx if pt. worsens during hospital stay. HFrEF -EF of 15-20 from echo on 04/19/18. Pt. is fluid overloaded based on exam and BNP of 1800. We will begin diuresing pt. as long as his bp and kidneys do not respond poorly. We are also adding spironolactone. Pancytopenia likely 2/2 cirrhosis -Continue to monitor. Hgb is 7.6 currently and may increase with diuresing however we would have a low threshold for transfusing due to symptoms and cardiac history. CKD 3 -We will monitor while giving lasix and dose meds appropriately IDDM -Home meds, ACHS accuchecks, SSI CAD -Continue home meds HTN -Continue home meds Code: full Prophylaxis: SCDs Family: None at bedside Disposition: Home in 3-4 days FMR H&P: Upper Level - Pertinent history 62 yo WM PMH end stage cirrhosis, HFrEF (EF 15-20% in March), CAD s/p CABG x4 vz , and IDDM. Presents with 1-2 day history of progressively worsening shortness of breath. [facility]. Last paracentesis was 1 month ago. States he is concerned his heart medications are not correct and are causing his current symptoms. Was seen in the hospital in March but left AMA after approximately 24 hours. States he took Lasix 80 mg before he came to ER. ER: Labs, EKG, CXR, CTA-chest, Vanc, Zosyn, Azithromycin, Lasix 20 mg. - Pertinent findings Vitals: BP 120/67, Tmax 102.1F, resp 30, SpO2 96% on 2L, pulse 75, GEN: Mild respiratory distress, speaks in full sentences, A&Ox4, CV: RRR, no murmur Lungs: CTA-B, increased respiratory effort, no signs of fatigue Abdomen: NT, mild distention, BSx4 quadrants, fluid wave felt Extremities: 1+ pitting edema to mid tibia. Labs: BNP 1840, Cr 1.63 (Baseline), albumin 3.3, INR 1.4, CBC 2.4, H&H 7.6/24.1 , Platelets 33, lactic acid 1.1 EKG: pulse 83 NSR, left axis deviation, QTc 447, no ST changes. CXR: Stable right plerual effusion CTA-Chest: No PE, possible left sided PNA vs atelectesis - Plan Date/Time: 07/04/18 0009 I, Shelton Randall MD, have evaluated this patient and agree with findings/plan as outlined by r d intern resident. Pertinent changes/additions are listed here. 1. Acute Hypoxic respiratory distres 2/2 CAP vs. CHF exacerbation: will check procalcitonin to determine need for antibiotics. continue diuresis with lasix 40 mg IVP BID, Prn oxygen and duoneb. 2. Sepsis 2/2 Pneumonia: Check procalcitonin, abx continued based on results. 3. Acute HFrEF exacerbation: lasix, fluid restrict 1500 mL/day, daily weights, strict I&O, med rec and continue home meds 4. End stage cirrhosis: will have IR perform therapeutic paracentesis tomorrow, needs started on spironolactone. 5. Pleural effusion: IR vs Pulmonology to perform thoracentesis for respiratory relief and diagnosis of fluid, does not appear loculated on CT scan so likely transudative, 6. CKD3: monitor daily BMP 7. IDDM: med rec, home meds, SSI, ACHS checks, hypoglycemics available 8. CAD s/p CABG x4 vessel: Home meds, 9. Pancytopenia 2/2 #3: monitor, no anticoagulation, 10. Hx EtOH and tobacco abuse: encourage continued cessation 11. Diet: HH, CC, fluid restrict 1500 mL/day 12. PPx: SCD, fall 13. Code: FULL Dispo: inpatient, tele, >[address] Catherine. Attending Addendum - Attending Addendum Date/Time: 07/04/18 [id number] I personally evaluated the patient and discussed the management with Dr. Myles I agree with the History, Examination, Assessment and Plan documented above with any addition or exceptions noted below- Patient left AMA prior to my seeing him.
[2018-07-04 00:48] LABS: Bilirubin Negative (Negative); Blood, Urine Negative (Negative); Clarity CLEAR (Clear); Glucose, Urine (Dipstick) Negative (Negative); Leukocyte Trace (Negative); Nitrite Negative (Negative); Protein, Urine (Dipstick) Negative (Neg-Trace); Specific Gravity, Urine 1.014 (1.002-1.036); Urobilinogen 0.2 mg/dL (0.2-1.0); pH, Urine 5.5 (5.0-9.0)
[2018-07-04 00:51] LABS: Bacteria/HPF None Seen HPF (None Seen); Hyaline Casts/LPF 0-3 HYALINE CAST LPF (0-3 Hyaline); Pathc Cast-AUWi Flag 0.29 (0-2.49); RBC/HPF 0-3 HPF (0-3); Squamous Epithelial 0-3 HPF (0-3); WBC/HPF 0-3 HPF (0-3)
[2018-07-04] MEDS ORDERED: Piperacillin/Tazobactam 3.375 GM VIAL ONE (01:13)
[2018-07-04] MEDS ORDERED: Furosemide 20 MG/2 ML VIAL ONE (01:14)
[2018-07-04] MEDS ORDERED: Ondansetron ODT 4 MG TAB SL PRN (02:27)
[2018-07-04] MEDS ORDERED: Ondansetron HCl/PF 4 MG/2 ML Vial IVP PRN (02:27)
[2018-07-04] MEDS ORDERED: Acetaminophen 325 MG TAB PO PRN ×2 (02:27→02:52)
[2018-07-04] MEDS ORDERED: Ondansetron ODT 4 MG TAB PO PRN (02:52)
[2018-07-04] MEDS ORDERED: Dextrose 50% Abboject 50 ML SYRINGE SLOW IVP PRN (02:52)
[2018-07-04] MEDS ORDERED: Dextrose 5% in Water 1,000 ML IV PRN (02:52)
[2018-07-04] MEDS ORDERED: HumaLOG 300 UNITS/3 ML VIAL SC PRN (02:52)
[2018-07-04] MEDS ORDERED: Spironolactone 25 MG TAB PO SCH ×2 (03:00→08:00)
[2018-07-04 03:15] VITALS: BMI 25.7
[2018-07-04 05:11] LABS: Hemoglobin 6.9 g/dL (14.0-18.0); Mean Corpuscular HGB CONC 32.8 g/dL (32.0-36.0); Mean Corpuscular Hemoglobin 31.3 pg (27.0-31.0); Mean Corpuscular Volume 95.5 fL (78.0-98.0); Mean Platelet Volume 11.2 fL (7.4-10.4); Platelet Count 24 thou/uL (130-400); RBC Distribution Width 15.2 % (11.5-14.5); White Blood Cell (WBC) Count 2.1 thou/uL (4.8-10.8)
[2018-07-04 05:21] LABS: Anion Gap 10 mmol/L (10-20); BUN (Urea Nitrogen) 33 mg/dL (8.4-25.7); Calc. Creatinine Clearance 55 mL/min (70-130); Calcium 7.8 mg/dL (7.8-10.44); Carbon Dioxide 19 mmol/L (23-31); Chloride 111 mmol/L (98-107); Estimated GFR-MDRD 43; Glucose 134 mg/dL (80-115); Potassium 3.4 mmol/L (3.5-5.1); Sodium 137 mmol/L (136-145)
[2018-07-04 05:41] LABS: Hypochromia MODERATE=16-30 cells (100X) (0-5/hpf); Lymphocytes 26 % (21-51); MDiff Complete? YES; Monocytes 10 % (0-10); Neutrophil 64 % (42-75); PLT Morphology Comment Appears Decreased; Polychromasia SLIGHT = 2-3 cells (100X) (0-2/hpf)
[2018-07-04] MEDS ORDERED: Furosemide 40 MG/4 ML VIAL SLOW IVP SCH ×2 (06:00)
[2018-07-04] MEDS ORDERED: Potassium Chloride 20 MEQ TAB PO SCH (06:45)
[2018-07-04 08:22] VITALS: BP 130/61; TEMP 96
[2018-07-04] MEDS ORDERED: Lisinopril 10 MG TAB PO SCH (09:00)
[2018-07-04] MEDS ORDERED: Carvedilol 6.25 MG TAB PO SCH (09:00)
[2018-07-04 12:25] LABS: Base Excess-Venous -4.9 mmol/L (0 (+/- 2.5)); Bicarbonate (HCO3v) 18.8 mmol/L (1.0-85.0); CO2 Tension (PvCO2) 28.3 mmHg (41.0-51.0); O2 Tension (PvO2) 75.2 mmHg (35.0-45.0); pH (Venous) 7.431 (7.35-7.45); vO2 Saturation-calc 95.6 % (94-98)
[2018-07-04 12:26] LABS: Calcium, Ionized 1.06 mmol/L (1.12-1.32); Hemoglobin - Calc 7.6 g/dL (12.0-18.0); Potassium 3.6 mmol/L (3.4-4.7); T. Carbon Dioxide 19.7 mmol/L (1.0-85.0)
[2018-07-04] MEDS ORDERED: Atorvastatin Calcium 40 MG TAB PO SCH (21:00)
--- NOTE | 2018-07-05 10:23 | DIS-2 ---
DATE OF ADMISSION: 07/03/2018 DATE OF DISCHARGE: 07/04/2018 RESIDENT: Coleman Patino DO. ADMITTING ATTENDING: Miley Catherine M.D. DISCHARGE ATTENDING: Miley Catherine M.D. CONSULTATIONS: None. PROCEDURES: None. PRIMARY DIAGNOSES: 1. End-stage cirrhosis with ascites. 2. Acute hypoxic respiratory distress secondary to congestive heart failure. 3. Fluid overload. ALTERNATIVE DIAGNOSES: 1. Heart failure with reduced ejection fraction. 2. Pancytopenia secondary to cirrhosis. 3. Chronic kidney disease stage 3. 4. Diabetes mellitus type 2. 5. Coronary artery disease. 6. Essential hypertension. DISCHARGE MEDICATIONS: Lisinopril 10 mg p.o. daily, Plavix 75 mg p.o. daily, Coreg 12.5 mg p.o. b.i.d., Lasix 40 mg p.o. b.i.d., nitroglycerin 0.4 mg p.o. q.5 minutes p.r.n., atorvastatin 40 mg p.o. at bedtime, tramadol 50 mg p.o. t.i.d., potassium chloride 20 mEq p.o. q.a.m., Levemir 30 units subcutaneous at bedtime, Levemir 25 units subcutaneous q.a.m., aspirin 325 mg p.o. daily. HISTORY OF PRESENT ILLNESS/HOSPITAL COURSE: Mr. Samano is a 62-year-old male initially presenting for shortness of breath. It was found that he was fluid overloaded secondary to his end-stage cirrhosis and heart failure. It was recommended that he obtained a therapeutic and diagnostic paracentesis and thoracentesis which the patient refused as he was not happy with having to be stuck with a needle. The risks were explained to him of not getting these procedures and the patient demonstrated understanding of the risk. He was diuresed with Lasix during his hospital stay and his shortness of breath and symptoms did improve. However, patient decided to leave [place] and follow up with an appointment he had in [place] for an outpatient scheduled paracentesis. I did not get to talk to him before he decided to leave against medical advice and assume he will continue his home medications. Patient's [facility] [place] [facility], but I cannot confirm that he will do this. DISCHARGE LOCATION: Home. DISCHARGE DIET: Regular. DISCHARGE ACTIVITY: As tolerated. FOLLOW UP: Did not get to discuss with the patient. Patient decided to leave against medical advice during this hospital stay. Coleman ROLDAN
== END 2018-07-04 10:00 | disposition left against medical advice (07) | DRG 433 ==
LOC: ERS 21:44 → 2NO 23:41
PROVIDERS: ADMIT Student in an Organized Health Care Education/Training Program; ATTEND Student in an Organized Health Care Education/Training Program
DX: K70.31 Alcoholic cirrhosis of liver with ascites (principal); I50.22 Chronic systolic (congestive) heart failure; D61.818 Other pancytopenia; I13.0 Hypertensive heart and chronic kidney disease with heart failure and stage 1 through stage 4 chronic kidney disease, or unspecified chronic kidney disease; F10.20 Alcohol dependence, uncomplicated; R06.03 Acute respiratory distress; E11.22 Type 2 diabetes mellitus with diabetic chronic kidney disease; N18.3 Chronic kidney disease, stage 3 (moderate); Z79.4 Long term (current) use of insulin; I25.10 Atherosclerotic heart disease of native coronary artery without angina pectoris; Z95.1 Presence of aortocoronary bypass graft
CPT/HCPCS: 36415; 36416; 71045; 71275; 80048; 80053; 81003; 81015; 82330; 82553; 82803; 83605; 83880; 84145; 84484; 85025; 85379; 85610; 86850; 86900; 86901; 87040; 87804; 93005; 96365; 96367; 96375; 96376; A4216; J0456; J1940; J2543; J3370

== ENCOUNTER 2018-09-15 04:25 | Emergency (ER) | payer MEDICARE, OTHER | END 2018-09-15 05:17 | disposition home or self-care (01) | LOC: ERS 04:25 | DX: S30.813A Abrasion of scrotum and testes, initial encounter (principal); I25.2 Old myocardial infarction; E11.9 Type 2 diabetes mellitus without complications; E78.5 Hyperlipidemia, unspecified; I11.0 Hypertensive heart disease with heart failure; I50.9 Heart failure, unspecified; J44.9 Chronic obstructive pulmonary disease, unspecified; F41.9 Anxiety disorder, unspecified; F31.9 Bipolar disorder, unspecified; F43.10 Post-traumatic stress disorder, unspecified; Z87.891 Personal history of nicotine dependence; X58.XXXA Exposure to other specified factors, initial encounter | CPT/HCPCS: 99283 ==

== ENCOUNTER 2019-01-18 18:58 | Emergency (ER) | payer OTHER | END 2019-01-18 19:42 | disposition left against medical advice (07) | LOC: ERS 18:58 | DX: Z53.21 Procedure and treatment not carried out due to patient leaving prior to being seen by health care provider (principal) | CPT/HCPCS: 93005 ==

== ENCOUNTER 2019-01-18 21:33 | Inpatient (IN) | payer MEDICARE, OTHER ==
[2019-01-18 22:20] LABS: Hemoglobin 8.1 g/dL (14.0-18.0); Mean Corpuscular HGB CONC 32.5 g/dL (32.0-36.0); Mean Corpuscular Hemoglobin 31.2 pg (27.0-31.0); Mean Corpuscular Volume 96.3 fL (78.0-98.0); RBC Distribution Width 14.1 % (11.5-14.5); Red Blood Cell (RBC) Count 2.59 mill/uL (4.70-6.10); White Blood Cell (WBC) Count 3.9 thou/uL (4.8-10.8)
[2019-01-18 22:25] LABS: INR-International Normal Ratio 1.4; PTT 34.6 SEC (22.9-36.1); Prothrombin Time 17.1 SEC (12.0-14.7)
[2019-01-18] MEDS ORDERED: Fentanyl 100 MCG/2 ML VIAL ONE (22:28)
[2019-01-18 22:36] LABS: ALT (SGPT) 7 U/L (8-55); AST (SGOT) 12 U/L (5-34); Albumin 3.1 g/dL (3.4-4.8); Alkaline Phosphatase 66 U/L (40-150); Anion Gap 12 mmol/L (10-20); BUN (Urea Nitrogen) 59 mg/dL (8.4-25.7); Bilirubin, Total 0.7 mg/dL (0.2-1.2); Calc. Creatinine Clearance 0 mL/min (70-130); Calcium 8.3 mg/dL (7.8-10.44); Carbon Dioxide 22 mmol/L (23-31); Chloride 107 mmol/L (98-107); Estimated GFR-MDRD 38; Globulin 2.4 g/dL (2.4-3.5); Glucose 130 mg/dL (80-115); Lipase 56 U/L (8-78); Potassium 4.4 mmol/L (3.5-5.1); Protein, Total 5.5 g/dL (5.8-8.1); Sodium 137 mmol/L (136-145)
[2019-01-18 22:46] LABS: Band 3 % (5-11); Eosinophils 6 % (0-10); Lymphocytes 10 % (21-51); MDiff Complete? YES; Mean Platelet Volume 9.6 fL (7.4-10.4); Monocytes 23 % (0-10); Neutrophil 58 % (42-75); Ovalocytes SLIGHT = 2-5 cells (100X) (0-1/hpf); Platelet Count 41 thou/uL (130-400); Platelet Morphology Comment Appears Decreased
--- NOTE | 2019-01-18 23:10 | RAD ---
Portable frontal chest radiograph: 01/18/2019 COMPARISON: 07/03/2018 HISTORY: Pain FINDINGS: Mild stable increased linear interstitial density. Midline sternotomy wires and mediastinal clips noted. No pneumothorax, pleural fluid, focal consolidation, or alveolar edema. IMPRESSION: Chronic findings as detailed above.
[2019-01-18 23:23] LABS: Acetaminophen Less than 6.0 mcg/mL (10.0-30.0); Alcohol Less than 10 mg/dL (Less than 10); Salicylate Less than 8.0 mg/dL (15.0-30.0)
--- NOTE | 2019-01-18 23:24 | CT ---
CT of abdomen and pelvis: 01/18/2019 COMPARISON: None HISTORY: Pain, paracentesis TECHNIQUE: Axial CT imaging at 5 mm intervals from lung bases through pubic symphysis with IV contras t. Coronal reformatted imaging obtained. FINDINGS: Coronary arterial calcification noted, incompletely assessed. There is a small right pleura l effusion. There is no free intraperitoneal air. There is large volume ascites throughout the abdomen and pelvis. The liver demonstrates a cirrhotic configuration. Limited assessment of the gallb ladder appears grossly unremarkable. There is marked enlargement of the spleen, which measures 21 cm in AP dimension. The portal vein appears patent. There appears to be a filling defect within the central most aspect o f the splenic vein on image 34. There is an abnormal soft tissue structure inferior to the region of the pancreatic body and separable from the pancreatic head in the expected location of the superio r mesenteric vein. This is best seen on image 42 and measures 4.7 x 4.6 cm. This could represent a mickey mass, and exophytic malignancy associated with the pancreatic head and uncinate process, and/or clot within the central mesenteric venous structures with associated expansion. This is favored to represent tumor with venous extension either on the basis of mickey mass or pancreatic malignancy. It is difficult to make this distinction given the degree of ascites in this region as well as the lack of oral contrast media. Limited assessment of the bowel demonstrates no evidence for obstruction. There are varices within th e meg hepatis. There is severe extensive atherosclerotic calcification of the abdominal aorta and its branches. The osseous structures demonstrate no worrisome lytic or blastic bone lesions. IMPRESSION: Ill-defined central soft tissue mass lesion inseparable from the inferior aspect of the p ancreatic head and uncinate process. This is suspicious for malignancy. This may invade the adjacent venous structures with associated superior mesenteric vein clot. There is a cirrhotic config uration of the liver with evidence of portal hypertension and large volume ascites. A follow-up examination with oral contrast media may be beneficial to better assess the abnormality s een within the central aspect of the abdomen. Alternatively, if the patient is able, an MRI of the abdomen would be the study of choice. Dr. Reese made aware via phone at 11:20 PM hours 01/18/2019
[2019-01-18] MEDS ORDERED: Sodium Chloride 0.9% 100 ML ONE (23:26)
[2019-01-18] MEDS ORDERED: Dexamethasone 10 MG/ML VIAL ONE (23:26)
[2019-01-18] MEDS ORDERED: cefTRIAXone\\ROCEPHIN 2 GM VIAL ONE (23:26)
[2019-01-19] MEDS ORDERED: Fentanyl 100 MCG/2 ML VIAL ONE (01:18)
[2019-01-19] MEDS ORDERED: Fentanyl 100 MCG/2 ML VIAL SLOW IVP PRN (03:48)
[2019-01-19] MEDS ORDERED: Ondansetron PF 4 MG/2 ML Vial IVP PRN (03:48)
[2019-01-19] MEDS ORDERED: Ondansetron ODT 4 MG TAB SL PRN (03:48)
[2019-01-19 03:58] VITALS: BMI 21.5
[2019-01-19 04:00] VITALS: BP 116/61
[2019-01-19] MEDS ORDERED: Sodium Chloride 0.9% 1,000 ML IV SCH (04:00)
[2019-01-19] MEDS ORDERED: Dextrose 50% Abboject 50 ML SYRINGE SLOW IVP PRN (05:53)
[2019-01-19] MEDS ORDERED: Dextrose 5% in Water 1,000 ML IV PRN (05:53)
[2019-01-19] MEDS: Furosemide 40 MG TAB PO SCH ×2 (08:11→15:06)
--- NOTE | 2019-01-19 08:27 | HP ---
PRIMARY CARE DOCTOR: The patient goes to the [facility]. CODE STATUS: Full code. TIME OF EVALUATION: 04:00 a.m. CHIEF COMPLAINT: Abdominal pain. HISTORY OF PRESENT ILLNESS: This is a 63-year-old male patient with past medical history of cirrhosis of the liver, came to the hospital after having severe abdominal pain. The patient had a paracentesis done on Tuesday at the [facility] in [place] and after that he started developing severe abdominal pain, was gradually getting worse as today he could not handle it anymore, he decided to come to the hospital. The patient had some relief only after medication were given in the ER. No clear triggers. CAT scan showed that the patient might have a pancreatic mass and also possible associated mesenteric venous thrombosis associated with a mass, and also cirrhosis of the liver. Symptoms were severe, associated with nausea. REVIEW OF SYSTEMS: CONSTITUTIONAL: No fever or chills. The patient reported generalized weakness. RESPIRATORY: No cough, sputum production, or shortness of breath. CARDIOVASCULAR: No chest pain, palpitation, or agitation. The patient had nausea. No vomiting. No diarrhea. Severe abdominal pain. SLEDGER: No dizziness, headache, or feeling lightheaded. GENITOURINARY: No burning on urination. EXTREMITIES: No leg swelling. All other systems were reviewed and negative except for the findings mentioned above. PAST MEDICAL HISTORY: Positive for cirrhosis of the liver, ascites, congestive heart failure, kidney failure, previous AL, diabetes, hyperlipidemia, hypertension, and COPD. FAMILY HISTORY: Reviewed, noncontributory to this case. SURGICAL HISTORY: Attempted stent placement was successful, cardiac bypass 2013 , trach tube in 2017, it was removed, PEG tube in 2017. PSYCHIATRIC HISTORY: Anxiety, bipolar disorder, depression, and PTSD. SOCIAL HISTORY: The patient lives with his spouse. No alcohol. No drugs. Former smoker, the patient quit in 2017. KNOWN ALLERGIES: No known drug allergies reported. MEDICATIONS: 1. Albuterol. 2. Carvedilol. 3. Folic acid. 4. Gabapentin. 5. Levemir. 6. Isosorbide dinitrate. 7. Lactulose. 8. Nitroglycerin. 9. Potassium chloride. 10. Ranitidine. 11. Spironolactone. 12. Thiamine. 13. Tramadol. 14. Xifaxan. 15. Rapaflo. PHYSICAL EXAMINATION: VITAL SIGNS: On presentation, blood pressure 115/65 with heart rate 76, respiratory rate was 18, temperature 98.4, pain was 8/10, oxygen saturation 97% on room air. GENERAL APPEARANCE: The patient is alert, oriented, not in acute distress. HEENT: Eyes, normal conjunctivae. Moist oral mucosa. Anicteric. No JVD. RESPIRATORY: Bilateral air entry. No rales. No wheezes. Symmetric expansion. CARDIOVASCULAR: Normal rate, regular rhythm. No murmurs. No gallop. No edema. ABDOMEN: Soft. At the time of my examination, nontender. The patient reported that it is relieved with pain medication. Normal bowel sounds. MUSCULOSKELETAL: Baseline range of motion and strength. No tenderness. SKIN: Warm, intact. No pallor. No rash. No redness. Peripheral pulses are present. Capillary refill seems to be intact. NEUROLOGIC: No evidence of any new focal weakness. Baseline speech. Cranial nerves seems to be intact. PSYCHIATRIC: The patient is in good mood. No anxiety. Optimal judgment. IMAGING: EKG was reviewed, normal sinus rhythm with a rate of 67, ID 160, QRS 100, QT corrected 528, left anterior fascicular block, inferior infarct, age undetermined, anterior infarct, age undetermined, prolonged QT. Abdomen and pelvis CT showed ill-defined central soft tissue mass lesion ancipital from the inferior aspect of the pancreatic head and uncinate process. This is suspicious for malignancy. This may have invaded the adjacent venous structure with associated superior mesenteric vein clot. A cirrhotic configuration of the liver with evidence of portal hypertension and large volume ascites. A Followup examination with oral contrast medium might be efficient since the abnormality is seen within the central aspect of the abdomen and tentatively if the patient is able, an MRI of the abdomen could be the study of choice. LABORATORY DATA: Labs were reviewed. The patient has white count 3.9, hemoglobin 8.1, hematocrit 25, MCV 96.3, platelet count was 41. Coagulation; PT 17.1, INR 1.4, PTT 34.6. Chemistry; sodium 137, potassium 4.4, chloride 107, carbon dioxide 22, anion gap 12. BUN 59, creatinine 1.82, previous creatinine was 1.61, GFR 38, glucose 130, lactic acid 1.2, calcium 9.3, total bilirubin 0.7. AST 12, ALT 7, alkaline phosphatase 66, ammonia 21. CK less than 9. Troponin was negative. Beta-natriuretic peptide was 363.9. Serum total protein 5.5, albumin 3.1, globulin 2.4, albumin globulin ratio is 1.3 with lipase 56. Toxicology, salicylate negative, acetaminophen negative. Plasma alcohol was less than 10. ASSESSMENT AND PLAN: The patient will be placed in the hospital with following medical problems: 1. Severe abdominal pain that seemed to be related to possible pancreatic mass versus possible thrombosis of the superior mesenteric vein. GI has been consulted, we will follow recommendations. No recent anticoagulations. The patient is at high risk for severe bleeding given pancytopenia. We will defer to GI for any further recommendations. 2. Pancytopenia. It is likely secondary to liver cirrhosis, it is recovering from before, that was about 24 in previous admission. No evidence of bleeding, we will monitor. 3. Oral anticoagulation with INR of 1.4, PT 17.1, no bleeding, we will monitor. This could be secondary to liver cirrhosis. 4. Chronic kidney disease with GFR 38, so this is stage III, creatinine is elevated than previous admissions. We will monitor. We will adjust treatment as needed. 5. Uncontrolled diabetes with hyperglycemia. The patient will be restarted on Levemir. We will place the patient on sliding scale for optimal control. 6. Decompensated liver cirrhosis with elevated INR, pancytopenia, background ascites, GI has been consulted, we will monitor. Reconcile home medications. Ammonia level was normal. 7. Hypotension on presentation with systolic in the 80s, the patient required fluid resuscitation, we will monitor, initially was a suspicion for a possible infection less likely SBP, overnight, the patient's blood pressure remained stable. Infection might not be the most likely diagnosis at this point. 8. Deep venous thrombosis prophylaxis. The patient is anticoagulated from the liver disease and pancytopenic. We would not add any anticoagulants for prophylaxis. 9. History of congestive heart failure as reported in the medical history, reconcile home medications, adjust treatment as needed. 10. History of hyperlipidemia. Low-cholesterol diet is advised. Job ID: [id number] [facility]
[2019-01-19] MEDS ORDERED: LEVEMIR 18 UNIT SC SCH (09:00)
[2019-01-19] MEDS ORDERED: Insulin Glargine 18 UNITS in Pre-Filled Syringe 1 EACH SC SCH (09:00)
[2019-01-19] MEDS ORDERED: Prevnar 13-Val Conj/PF 0.5 ML SYRINGE IM ONE (09:00)
[2019-01-19] MEDS ORDERED: cefTRIAXone\\ROCEPHIN 1 GM in Sodium Chloride 0.9% 100 ML IVPB SCH (10:00)
[2019-01-19] MEDS: HumaLOG 300 UNITS/3 ML VIAL SC PRN ×2 (13:10→18:36)
--- NOTE | 2019-01-19 15:13 | CON ---
DATE OF CONSULTATION: 01/19/2019 SERVICE: Pulmonary Medicine. INTERVAL HISTORY: The patient is a 63-year-old white male with past medical history significant for cirrhosis secondary to alcohol abuse and hepatitis C. He has been sober for over 2 years now. He quit drinking whenever he started having severe liver problems. He gets a paracentesis roughly once a month. Typically, they take off over 7 L. His most recent tap was on Tuesday. Ever since that tap, however, he had abdominal pain on the bilateral aspects of his belly. He stops eating food. He presented to the emergency department, and had some marginal blood pressures. He was treated as though he had spontaneous bacterial peritonitis and tucked into the IMCU because of those blood pressures. Overnight, things firmed up. He got the pain medicine and antibiotic and his belly pain is now resolved. He denies any current fevers, chills, nausea, or vomiting. He does have diarrhea whenever he takes his lactulose. He is currently on a hiatus from that. He has no cough, sputum production, shortness of breath, paroxysmal nocturnal dyspnea, or orthopnea. He is otherwise in his usual state of health and has no complaints. PAST MEDICAL HISTORY: 1. Cirrhosis secondary to hepatitis C and alcohol abuse. 2. Chronic kidney disease, stage 3. 3. Type 2 diabetes mellitus. 4. Hypertension. 5. Dyslipidemia. 6. Coronary artery disease. 7. COPD. PAST SURGICAL HISTORY: 1. Coronary artery bypass graft surgery in 2013. 2. Tracheostomy tube in 2017 with subsequent decannulation. 3. PEG tube placement in 2017. SOCIAL HISTORY: Negative for alcohol, tobacco, or illicit drug use. He has a remote history of tobacco abuse and alcohol abuse. He quit both these things about 2 years ago. FAMILY HISTORY: Noncontributory. ALLERGIES: NO KNOWN DRUG ALLERGIES. MEDICATIONS: List of his inpatient medications was reviewed. No specific updates were made at this time. REVIEW OF SYSTEMS: General; head, ears, eyes, nose, throat; cardiovascular; respiratory; GI; ; musculoskeletal; neurologic; and skin are negative except as mentioned in the HPI. PHYSICAL EXAMINATION: VITAL SIGNS: Afebrile, pulse 64, blood pressure 123/64, respirations 16, and saturation 98% on room air. GENERAL: The patient is awake and alert, in no apparent distress. LUNGS: Excellent air entry without any prolonged expiratory phase or wheezing present. HEART: Normal rate and regular. ABDOMEN: Soft. Distended with ascites. There is no rebound or guarding. Bowel sounds are present. MUSCULOSKELETAL: No cyanosis or clubbing. There is no pitting in the bilateral lower extremities. NEUROLOGIC: Grossly nonfocal. He has no asterixis. LABORATORY DATA: WBC 3.9, hemoglobin 8.1, platelets 41,000. Band count 3%. INR 1.4. Toxicology for salicylates, acetaminophen, and alcohol are negative. Creatinine 1.82, which is not much above his baseline. Liver function studies otherwise unremarkable. CK is below the assay limit of 9, BNP is in historic low, troponin 0.025, ammonia is normal. Lactate 1.2. Blood sugar ranges from 189 to 230. Blood cultures x2 are negative. IMAGING STUDIES: 1. CT of the abdomen and pelvis demonstrates ascites. There is cirrhotic morphology to the liver. Inferior aspect of the pancreatic head has a mass lesion on it. 2. Chest x-ray demonstrates no acute cardiopulmonary abnormality. ASSESSMENT: 1. Severe abdominal pain, resolved. 2. Cirrhosis secondary to alcohol abuse and hepatitis C. 3. Mesenteric vein thrombus. 4. Pancreatic mass. DISCUSSION AND PLAN: The patient is stable for transition out of the IMCU to the medical unit. He currently has no end-organ damage and is otherwise it is baseline. His BNP is in historic low and he has no signs of volume overload outside of his ascites. As such, home medications will be continued. He has no further requirements for inpatient Pulmonary/Critical Care opinion, so when he gets to the floor, I will sign off. Please call with additional questions or concerns through time. 70 minutes have been devoted to this patient in various activities. I personally reviewed all imaging studies and laboratory data noted within this document. For fifty percent of this time, I was interacting with the patient at the bedside or coordinating care with the care team. For the remainder of the time I was immediately available to the patient in the hospital unit. Job ID: [id number] [facility]
[2019-01-19] MEDS ORDERED: Morphine 4 MG/ML VIAL SLOW IVP PRN (19:28)
[2019-01-19] MEDS ORDERED: Insulin Glargine 20 UNITS in Pre-Filled Syringe 1 EACH SC SCH (21:00)
[2019-01-19] MEDS ORDERED: Atorvastatin Calcium 40 MG TAB PO SCH (21:00)
[2019-01-19] MEDS ORDERED: Non-Formulary Item 1 EACH (Levemir Flexpen [Levemir Flexpen] 20 UNIT) SC SCH (21:00)
[2019-01-19] MEDS: Acetaminophen 325 MG TAB PO PRN (22:37)
--- NOTE | 2019-01-20 00:15 | CON ---
DATE OF CONSULTATION: 01/19/2019 CHIEF COMPLAINT: Abdominal pain. HISTORY OF PRESENT ILLNESS: Mr. Samano is a 63-year-old man who is followed at [facility] in [place] for cirrhosis, which is decompensated. He just had a paracentesis performed on Tuesday, three days ago. He states that the usual provider who does the paracentesis was not available and one of his associates performed the paracentesis. He had an attempted paracentesis in the right lower quadrant, however, this apparently was a dry tap and the needle was then repositioned and paracentesis was performed in the left lower quadrant and 7 L were removed. Mr. Samano reports that he had significant pain in the right lower quadrant after the paracentesis and this worsened such that he came to the emergency room yesterday for further care. During evaluation, he had a CT scan of the abdomen and pelvis, which incidentally showed a possible mass in the pancreas versus blood clot in the mesenteric vein in that area. He has had no nausea or vomiting associated with this. His abdominal pain has since resolved. He states that throughout the day today, he has absolutely no pain and is ready to go home. He wishes to have the pancreatic lesion and evaluated further at the [facility]. He has no diarrhea, constipation, or blood in the stool. PAST MEDICAL HISTORY: Cirrhosis secondary to past hepatitis C and alcohol. The hepatitis C was reportedly cured with antiviral therapy last year. Chronic kidney disease, diabetes mellitus type 2, hypertension, hyperlipidemia, COPD, and coronary artery disease. PAST SURGICAL HISTORY: Coronary artery bypass graft, cataract surgery. FAMILY HISTORY: Negative for GI malignancy. SOCIAL HISTORY: He quit alcohol at least two and half years ago. He quit smoking a couple of years ago. No drugs. He follows with the [facility] and is a [place] . ALLERGIES: NO KNOWN DRUG ALLERGIES. MEDICATIONS: 1. Aspirin. 2. Atorvastatin. 3. Carvedilol. 4. Plavix. 5. Furosemide. 6. Insulin. 7. Lisinopril. 8. Potassium. 9. Tramadol. REVIEW OF SYSTEMS: Negative x10 systems reviewed except as stated in the history of present illness. PHYSICAL EXAMINATION: VITAL SIGNS: Temperature 98.2, blood pressure 124/64, pulse 64. GENERAL: He is in no acute distress. He is alert and oriented x3. HEENT: Eyes have no scleral icterus. Oropharynx is clear without lesions. NECK: No cervical or supraclavicular lymphadenopathy. LUNGS: Clear to auscultation bilaterally. HEART: Regular rate and rhythm without murmur. ABDOMEN: Soft, mildly distended without guarding and bowel sounds are present. EXTREMITIES: No lower extremity edema. NEUROLOGIC: There is no asterixis on neurological exam. LABORATORY DATA: White blood cell count 3.9, hemoglobin 8.1, platelets 41. Creatinine 1.82, bilirubin 0.7, AST 12, ALT 7, alkaline phosphatase 66. BNP 363. IMAGING: He had CT scan of the abdomen and pelvis on 01/18/2019, this showed splenomegaly with the spleen size of 21 cm. The liver had a cirrhotic configuration. An abnormal soft tissue structure was noted in the pancreatic body in the area of the superior mesenteric vein. This was thought to be either a mass of the pancreas versus a possible blood clot in the mesenteric vein in this area. IMPRESSION: 1. Cirrhosis of the liver. He is decompensated with ascites and elevated INR and hypoalbuminemia. Status of his hepatoma screening is not known at this time as this is followed at the [facility]. He has followup already scheduled with GI at the [facility] in [place] and he wishes to continue his care for his cirrhosis there. I do not know the status of his varices screening either at this time. 2. Abdominal pain, currently resolved. This apparently started after paracentesis on Tuesday. There were no signs of significant complications at this point. 3. Incidental finding of possible pancreatic mass versus a question of a thrombus in the superior mesenteric vein. He is on Plavix and aspirin and has significant thrombocytopenia. Status of his varices is not known. He is potentially high risk for anticoagulation and states that he would not take it. The next step in evaluation of this should be endoscopic ultrasound to evaluate for pancreatic mass and Doppler can also be performed on vasculature in the area. We do not perform EUS at this facility, but again he wishes to follow this up further through the [facility]. RECOMMENDATIONS: 1. His pain is resolved and he should be ready to discharge home tomorrow morning. 2. His renal function should continue to be followed. His creatinine is baseline around 1.6 to 1.8. He is on diuretics at home per his report, but I do not have those on his listed above and it is not confirmed. He does not know his medications off the top of his head at this point. 3. I gave him a copy of the CT scan report to take with him to his GI appointment and his primary care physician to evaluate this further. Again, endoscopic ultrasound is likely the next step and he will require referral for that. 4. He will continue varices screening and hepatoma screening and [facility] 5. Please call if GI can be of assistance. Job ID: [id number]
[2019-01-20 06:04] LABS: Anion Gap 12 mmol/L (10-20); BUN (Urea Nitrogen) 57 mg/dL (8.4-25.7); Calc. Creatinine Clearance 47 mL/min (70-130); Calcium 8.4 mg/dL (7.8-10.44); Carbon Dioxide 20 mmol/L (23-31); Chloride 112 mmol/L (98-107); Estimated GFR-MDRD 45; Glucose 113 mg/dL (80-115); Potassium 4.5 mmol/L (3.5-5.1); Sodium 139 mmol/L (136-145)
[2019-01-20] MEDS: Acetaminophen 325 MG TAB PO PRN (06:18)
[2019-01-20 06:25] LABS: Band 5 % (5-11); Eosinophils 4 % (0-10); Hemoglobin 7.8 g/dL (14.0-18.0); Large Platelets SLIGHT; Lymphocytes 11 % (21-51); MDiff Complete? YES; Mean Corpuscular HGB CONC 33.1 g/dL (32.0-36.0); Mean Corpuscular Hemoglobin 32.6 pg (27.0-31.0); Mean Corpuscular Volume 98.6 fL (78.0-98.0); Mean Platelet Volume 10.8 fL (7.4-10.4); Monocytes 19 % (0-10); Neutrophil 61 % (42-75); Ovalocytes SLIGHT = 2-5 cells (100X) (0-1/hpf); Platelet Count 35 thou/uL (130-400); Platelet Morphology Comment Appears Decreased; RBC Distribution Width 14.3 % (11.5-14.5); White Blood Cell (WBC) Count 3.6 thou/uL (4.8-10.8)
[2019-01-20 07:10] VITALS: TEMP 97.7
--- NOTE | 2019-01-20 10:09 | DIS ---
DATE OF ADMISSION: 01/19/2019 DATE OF DISCHARGE: 01/20/2019 PRIMARY CARE PHYSICIAN: [facility]. DISCHARGE DISPOSITION: Home. PRIMARY DIAGNOSES: 1. Severe abdominal pain, resolved. 2. New diagnosis of pancreatic mass. SECONDARY DIAGNOSES: 1. Ischemic cardiomyopathy. 2. Pancytopenia. 3. Moderate mitral and tricuspid regurgitation. 4. Macrocytic anemia. 5. Hypertension. 6. History of mitral valve repair. 7. Diabetes, type 2. 8. Chronic kidney disease, stage 3. 9. Cirrhosis of liver secondary to alcohol and hepatitis C. 10. Chronic systolic heart failure with stage C. 11. Coronary artery disease. 12. Alcohol abuse. PRIMARY PROCEDURE/OPERATION: None. RADIOLOGICAL INVESTIGATION: CT abdomen and pelvis, chest x-ray. SIGNIFICANT LABORATORY DATA: Hemoglobin 7.8. INR 1.4. Creatinine 1.57. DISCHARGE MEDICATIONS: 1. ProAir 2 puffs q.6 hourly p.r.n. 2. Folic acid 1 mg daily. 3. Gabapentin 300 mg p.o. at bedtime. 4. Isordil 20 mg p.o. b.i.d. 5. Lactulose 10 g p.o. b.i.d. 6. Levemir 20 units in the morning and 10 units at bedtime. 7. Potassium chloride 10 mEq p.o. daily. 8. Ranitidine 150 mg b.i.d. 9. Aldactone 100 mg daily. 10. Thiamine 100 mg daily. 11. Tramadol 50 mg t.i.d. p.r.n. 12. Nitroglycerin p.r.n. 13. Coreg 12.5 mg b.i.d. 14. Lasix 40 mg p.o. daily. CONTRAINDICATION: The patient is not on CUATE inhibitor because the patient has alcoholic cirrhosis with ascites and the CUATE inhibitor and ARB is contraindicated. INPATIENT RESTAURANT AND BAR MANAGER: Dr. Carroll Luna and Dr. Fitzpatrick. CODE STATUS: Full code. ALLERGIES: NO KNOWN DRUG ALLERGIES. DISCHARGE PLAN: Posthospital, the patient will follow up with [facility]. The patient will follow up in the outpatient basis for endoscopic ultrasound. HOSPITAL COURSE: A 63-year-old male with above-mentioned medical problem, who was admitted by Dr. Palm. Please see his H and P for further details. The patient was admitted for acute abdominal pain. He had a recently paracentesis done and the patient had ruled out SBP. His pain was improved with pain medication. He was admitted in the hospital for suspected SBP, but he did not have any symptoms suggestive of SBP during this admission. His pain was completely resolved and he was stable. During this admission, blind eyeletter and chief accounting officer saw and blind eyeletter recommended that he will need outpatient endoscopic ultrasound for his new finding of pancreatic mass. The patient is also feeling much better and he does not want to stay in the hospital today and he wants to go home. He will continue all his previous medication without any change and he will follow up with his primary care physician and blind eyeletter and for more investigation, he will go to [place]. Overall, the patient is medically stable for discharge. I have seen and examined this patient at the bedside personally. His examination is completely unremarkable other than ascites. Job ID: [id number]
== END 2019-01-20 09:50 | disposition left against medical advice (07) | DRG 438 ==
LOC: ERS 21:33 → IMCU/EMU 01-19 02:50
PROVIDERS: ADMIT Hospitalist; ATTEND Hospitalist
DX: K86.89 Other specified diseases of pancreas (principal); I81 Portal vein thrombosis; I13.0 Hypertensive heart and chronic kidney disease with heart failure and stage 1 through stage 4 chronic kidney disease, or unspecified chronic kidney disease; D61.818 Other pancytopenia; I50.22 Chronic systolic (congestive) heart failure; F10.19 Alcohol abuse with unspecified alcohol-induced disorder; K70.31 Alcoholic cirrhosis of liver with ascites; E78.5 Hyperlipidemia, unspecified; F41.9 Anxiety disorder, unspecified; F32.9 Major depressive disorder, single episode, unspecified; F43.10 Post-traumatic stress disorder, unspecified; E11.65 Type 2 diabetes mellitus with hyperglycemia; D53.9 Nutritional anemia, unspecified; N18.3 Chronic kidney disease, stage 3 (moderate); E11.22 Type 2 diabetes mellitus with diabetic chronic kidney disease; I25.5 Ischemic cardiomyopathy; I08.1 Rheumatic disorders of both mitral and tricuspid valves; B19.20 Unspecified viral hepatitis C without hepatic coma; I25.10 Atherosclerotic heart disease of native coronary artery without angina pectoris; I25.2 Old myocardial infarction; Z95.5 Presence of coronary angioplasty implant and graft; Z79.82 Long term (current) use of aspirin; Z79.02 Long term (current) use of antithrombotics/antiplatelets; Z79.4 Long term (current) use of insulin
CPT/HCPCS: 36415; 36416; 71045; 74177; 80048; 80053; 80307; 82140; 82550; 83605; 83690; 83880; 84484; 85025; 85610; 85730; 87040; 90471; 90670; 93005; 96361; 96365; 96367; 96375; 96376; G0009; J0696; J1100; J1825; J2270; J3010; J3370; J3490; Q9966